=== PATIENT | male | born 1955 | race Caucasian/White ===

== ENCOUNTER 2019-03-14 06:15 | Day surgery (SDC) | payer OTHER ==
[~2019-03-14 06:15] MED LIST: CLONAZEPAM2 MG PO; DEPAKOTE ER500 MG PO; EFFEXOR XR150 MG PO; SEROQUEL200 MG PO; SEROQUEL400 MG PO; TRAZODONE HCL50 MG PO; [UNRECOGNIZED DRUG - OTHER] PO
== END 2019-03-14 11:50 | disposition home or self-care (01) ==
LOC: CIR.AMB 06:15
DX: R15.9 Full incontinence of feces (principal)
CPT/HCPCS: 64590; C1767